=== PATIENT | female | born 1965 | race Caucasian/White ===

== ENCOUNTER 2019-12-30 10:04 | Outpatient (CLI) | payer OTHER, SELFPAY ==
--- NOTE | ~2019-12-30 | DEXA_ITS ---
Bone Density Report Name: Vidhya Eastman Age: 54 Sex: Female Ethnicity: White Date of : 1965 Indication: postmenopausal; Referring Provider: JOVAN STARR Study: Bone densitometry was performed. Exam Date: December 30, 2019 Accession number: [id number] Bone Density: Region BMD T-score Z-score Classification AP Spine (L1-L4) 0.772 -2.5 -1.4 Osteoporosis Femoral Neck (Left) 0.464 -3.5 -2.4 Osteoporosis Total Hip (Left) 0.706 -1.9 -1.2 Osteopenia Total Hip Bilateral Avg 0.721 -1.8 -1.1 Osteopenia Femoral Neck (Right) 0.539 -2.8 -1.7 Osteoporosis Total Hip (Right) 0.736 -1.7 -1.0 Osteopenia World Health Organization criteria for BMD impression classify patients as: Normal (T-score at or above -1.0), Osteopenia (T-score between -1.0 and -2.5), or Osteoporosis (T-score at or below -2.5). 10-year Fracture Risk: FRAX not reported because: Some T-score for Spine Total or Hip Total or Femoral Neck at or below -2.5 Clinical Information Provided by Patient: Has used the following medications: Vitamin D, Calcium Patient maximum height was 65 Menopause Age: 53 Drinks caffeinated beverages Onset of menses at age 11 Number of children 1 Impression: The patient has osteoporosis, based on the Left Femoral Neck T-score. Discussion: HIGH RISK OF FRACTURE. BONE DENSITY IS UNDESIRABLY LOW AT ONE OR MORE SKELETAL SITES, CONSISTENT WITH OSTEOPOROSIS. ALSO, BONE DENSITY IS LOWER THAN EXPECTED FOR AGE AND SEX AT ONE OR MORE SKELETAL SITES; RECOMMEND A DILIGENT SEARCH FOR SECONDARY CAUSES OF BONE LOSS. This patient's lowest T-score meets the World Health Organization's (WHO) criteria for osteoporosis at one or more sites (T-score -2.5 or below). In untreated patients, the risk of osteoporotic fracture increases approximately two-fold for each 1.0 SD decrease in T-score. Low bone density is not the only risk factor for fracture; also consider factors such as patient's age, frailty or poor health, risk of falling, risk of injury, previous osteoporotic fracture, family history of osteoporosis, cigarette smoking, low body weight, etc. Not everyone with low bone mineral density has osteoporosis; osteomalacia and other metabolic bone disorders should also be considered. Patients who have osteoporosis should be evaluated for specific diseases and conditions (secondary causes) that may cause or contribute to bone loss. The [place] [employer]ocrinologists (AACE) and National Osteoporosis Foundation (NOF) recommend pharmacologic intervention for all postmenopausal women whose T-score is in this range. Also, this patient's bone mineral density is below the range considered normal for healthy age-, sex-, and race-matched controls at least one site (Z-score -2.0 or below). This warrants careful evaluation for diseases and conditions t
[2019-12-30 12:57] LABS: Vitamin D 25 Hydroxy 40.1 ng/mL
== END 2019-12-30 10:05 | disposition home or self-care (01) ==
PROVIDERS: PCP Family Medicine Sports Medicine; Visit Provider Obstetrics & Gynecology
DX: Z78.0 Asymptomatic menopausal state (principal); M81.0 Age-related osteoporosis without current pathological fracture; M85.89 Other specified disorders of bone density and structure, multiple sites
CPT/HCPCS: 36415; 77080; 82306

== ENCOUNTER 2020-01-28 00:42 | Outpatient (CLI) | payer OTHER, SELFPAY ==
[2020-01-28 18:07] LABS: SARS-CoV-2 RNA PCR Negative
== END 2020-01-28 00:43 | disposition home or self-care (01) ==
LOC: ANHCOVIDDT 00:42
PROVIDERS: Anesthesiology; PCP Family Medicine Sports Medicine; Visit Provider Obstetrics & Gynecology
DX: Z01.818 Encounter for other preprocedural examination (principal); Z11.59 Encounter for screening for other viral diseases
CPT/HCPCS: 87635; C9803; U0003

== ENCOUNTER 2020-01-30 02:14 | Day surgery (SDC) | payer OTHER, SELFPAY ==
[2020-01-19 15:11] VITALS: BMI 21.6
[2020-01-30] VITALS (8 sets, daily range): BP systolic 90–113; BP diastolic 55–68; PULSE 69–86; RESP 10–18; TEMP 36.4; O2SAT 94–100
--- NOTE | 2020-01-30 08:20 | PM.HPGS ---
History of Present Illness History of Present Illness Consent: Risks, benefits, and alternatives have been discussed and questions answered. Patient agrees to proceed with procedure. Chief complaint: Genuine Stress Incontinence Narrative: Vidhya Eastman is a 54 year old female A2 presented to the office with complaints of leakage of urine Patient reports leakage with cough laugh sneeze and exercise.Patient has tried kegel/bladder exercises and not helping. Review of Systems Review of Systems: All systems reviewed & are unremarkable except as noted in HPI and below PMFSH Past Medical History Medical History (Updated 01/30/20 @ 08:33 by Juan Francisco Swift MD) Constipation GSI (genuine stress incontinence), female Social History Social History Smoking status: Never smoker Alcohol intake: unknown Drinks per week: 0 Substance use: never Substance use type: does not use Living arrangements: with family Gender identity (if verbalized by the patient): Female Spiritual care concerns: No Meds Home Medications and Allergies Home Medications Medication Instructions Recorded Confirmed Type gbfbwohomcfp-tab-zjzz-FA-vit K 1 tablet PO DAILY 01/19/20 01/19/20 History [Adults Multivitamin] Allergies Allergy/AdvReac Type Severity Reaction Status Date / Time No Known Allergies Allergy Unverified 01/19/20 15:29 Exam Const: General: no acute distress Cardio: Rate: regular rate Rhythm: regular rhythm Assessment and Plan Assessment and plan (1) GSI (genuine stress incontinence), female: Code(s): N39.3 - Stress incontinence (female) (male) Status: Acute Assessment and Plan: Patient scheduled for transobturator taping with cystoscopy. Risk and benefits reviewed in detain with patient including bleeding infection, trauma, mesh erosion, retention and chronic pain.
--- NOTE | 2020-01-30 10:41 | P.PNAN_ITS ---
Anes - Initial Pre Proc Eval Procedure: Operation Date: 01/30/20 12:00 Proposed Procedures p Trans Obturator Taping - Juan Francisco Swift MD s Cystoscopy - Juan Francisco Swift MD Date/Time: 01/30/20 10:41 Surgeon: Juan Francisco Swift MD Pre Op Diagnosis: Genuine Stress Incontinence Patient Data Age: 54 Gender: F Height: 5 ft 5 in Weight: 59 kg Allergies Allergy/AdvReac Type Severity Reaction Status Date / Time No Known Allergies Allergy Unverified 01/19/20 15:29 Home Medications Medication Instructions Recorded Confirmed Type ydfrvqjzktsn-hob-mgbo-FA-vit K 1 tablet PO DAILY 01/19/20 01/19/20 History [Adults Multivitamin] Patient hx anesthesia problems: none Family hx anesthesia problems: none [facility] Past Medical History Medical History (Updated 01/30/20 @ 08:33 by Juan Francisco Swift MD) Constipation GSI (genuine stress incontinence), female Social History Social History Smoking status: Never smoker Alcohol intake: unknown Drinks per week: 0 Substance use: never Substance use type: does not use Living arrangements: with family Gender identity (if verbalized by the patient): Female Spiritual care concerns: No Anes - Eval Final PreProcedure Day of Procedure 01/30/20 10:41 Patient weight: normal Heart: regular rate and rhythm Lungs: clear to auscultation Airway: Mallampati scale class II Neurological: alert and oriented Last oral intake: >/= 8 hours ASA classification: II Emergent: no Anesthetic plan: proceed Anesthesia type and monitoring: general LMA and standard monitoring Informed Consent: The patient's anesthetic plan and its attendant risks and benefits were discussed with the patient/family/POA. Questions were solicited and answers provided to the satisfaction of the patient/family/POA.
[2020-01-30] MEDS: LACTATED RINGERS 1,000 ML 30 ML IV CONT ×2 (10:45→12:01)
[2020-01-30] MEDS: ceFAZolin 2 GM/D5W 50 ML 2 GM/50 ML BAG IVPB (11:50)
[2020-01-30] MEDS: LIDO 1%/EPINEPHRINE 1:100,000 20 ML VIAL INFILTRATE (12:01)
--- NOTE | 2020-01-31 16:59 | OP_ITS ---
DATE OF PROCEDURE: 01/30/2020 PREOPERATIVE DIAGNOSIS: Genuine stress incontinence. POSTOPERATIVE DIAGNOSIS: Genuine stress incontinence. PROCEDURE PERFORMED: Transobturator taping with cystoscopy. ESTIMATED BLOOD LOSS: 20 mL. COMPLICATIONS: None. DESCRIPTION OF PROCEDURE: Patient was taken to the operating room under general anesthesia and placed in a dorsal lithotomy position. The patient was prepped and draped in normal sterile fashion. The bladder was emptied with a 16-[place] catheter. Two Allis clamps were placed along the anterior vaginal wall beginning 1 cm below the urethra and approximately 2 cm apart vertically. A 2 cm incision was made between the Allis clamps and the anterior vaginal mucosa. Periurethral tissue was dissected with Metzenbaum scissors and blunt dissection to the level of the pubic bone on either side. The midline was marked just above the pelvis and 2 markings were made in the obturator canal using landmarks. The needle was then placed through the transobturator taping passing underneath the pubic bone through the obturator canal exiting alongside the urethra on the right side. The same procedure was performed on the left side. The catheter was removed. The cystoscope was performed, which showed an intact bladder with bilateral ureteral jets and no needle or metal showing on cystoscopy and clear urine. The cystoscope was removed. The mesh was attached to the needle and pulled through adjusting the vaginal mesh with a Metzenbaum scissors for adequate spacing. The vaginal mucosa was then closed with a running locked suture of 2-0 Vicryl for complete hemostasis. The mesh ends were cut applied to the area. At the end of the procedure, all sponge, needle, and instrument counts were correct x2. There were no complications. The patient tolerated the procedure well, was taken to recovery room in stable condition. D I MT: Jorge
== END 2020-01-30 14:40 | disposition home or self-care (01) ==
PROVIDERS: PCP Family Medicine Sports Medicine; Visit Provider Obstetrics & Gynecology
PROC: (CPT 57288; principal; 2020-01-30 12:00)
PROC: 0TJB8ZZ Inspection of Bladder, Via Natural or Artificial Opening Endoscopic (ICD-10-PCS; CPT 52000; 2020-01-30 12:00)
DX: N39.3 Stress incontinence (female) (male) (principal)
CPT/HCPCS: 57288; A9270; C1771; J0690; J1100; J2250; J2405; J2704; J3010; J7030; J7120

== ENCOUNTER 2020-08-09 03:47 | Outpatient (CLI) | payer OTHER, SELFPAY ==
[2020-08-09 16:31] LABS: SARS-CoV-2 RNA PCR Negative
== END 2020-08-09 03:48 | disposition home or self-care (01) ==
LOC: ANHCOVIDDT 03:47
PROVIDERS: PCP Family Medicine Sports Medicine; Visit Provider Internal Medicine Gastroenterology
DX: Z01.812 Encounter for preprocedural laboratory examination (principal); Z20.822 Contact with and (suspected) exposure to COVID-19
CPT/HCPCS: C9803; U0003; U0005

== ENCOUNTER 2020-08-12 01:19 | Day surgery (SDC) | payer OTHER, SELFPAY ==
[2020-07-30 09:39] VITALS: BMI 22.0
[2020-08-12 10:41] VITALS: BP 90/56; PULSE 88; RESP 18; TEMP 36.6; O2SAT 100
[2020-08-12] MEDS: LACTATED RINGERS 1,000 ML 150 ML IV CONT (10:50)
--- NOTE | 2020-08-12 11:11 | WPDANESEPPF ---
Anes - Initial Pre Proc Eval Procedure: Operation Date: 08/12/20 13:00 Proposed Procedures p Screening Colonoscopy - Gio Ramirez MD Date/Time: 08/12/20 11:11 Surgeon: Gio Ramirez MD Pre Op Diagnosis: neoplasm screening Patient Data Age: 54 Gender: F Height: 5 ft 5 in Weight: 59.9 kg Last Vital Signs Temp 97.9 F 08/12/20 10:41 Pulse 88 08/12/20 10:41 Resp 18 08/12/20 10:41 BP 90/56 L 08/12/20 10:41 Pulse Ox 100 08/12/20 10:41 Allergies Allergy/AdvReac Type Severity Reaction Status Date / Time No Known Allergies Allergy Unverified 01/30/20 10:58 Home Medications Medication Instructions Recorded Confirmed Type xqgsietpljgt-kid-ieku-FA-vit K 1 tablet PO DAILY 01/19/20 07/30/20 History [Adults Multivitamin] calcium carbonate-vitamin D2 1 tablet PO DAILY 07/30/20 07/30/20 History [Calcium + Vitamin D] flu vac [id number] 36mos up(PF) 0.5 ml IM [id number] 07/30/20 07/30/20 History [Afluria Qd 2020-21(3yr up)(PF)] spironolactone 100 mg PO DAILY 07/30/20 07/30/20 History Patient hx anesthesia problems: none Family hx anesthesia problems: none PMFSH Past Medical History Medical History (Updated 01/30/20 @ 08:33 by Juan Francisco Swift MD) Constipation GSI (genuine stress incontinence), female Social History Social History Smoking status: Never smoker Alcohol intake: never Drinks per week: 0 Substance use: never Substance use type: does not use Living arrangements: with family Gender identity (if verbalized by the patient): Female Spiritual care concerns: No Anes - Eval Final PreProcedure Day of Procedure 08/12/20 11:11 Patient weight: overweight Heart: regular rate and rhythm Lungs: clear to auscultation Airway: Mallampati scale Last oral intake: >/= 8 hours ASA classification: II Emergent: no Anesthetic plan: proceed Anesthesia type and monitoring: general and standard monitoring Informed Consent: The patient's anesthetic plan and its attendant risks and benefits were discussed with the patient/family/POA. Questions were solicited and answers provided to the satisfaction of the patient/family/POA.
--- NOTE | 2020-08-12 11:39 | PM.HPGS ---
History of Present Illness History of Present Illness Consent: Risks, benefits, and alternatives have been discussed and questions answered. Patient agrees to proceed with procedure. Chief complaint: neoplasm screening Narrative: Vidhya Eastman is a 54 year old female with colon polyps almost 3 years ago. Review of Systems Constitutional: Constitutional: Denies headache(s) and Denies weakness Eyes: Eyes: Denies blurry vision ENT: Reports Normal hearing present, Denies headache(s) and Denies neck pain Cardiovascular: Cardiovascular: Denies chest pain and Denies dyspnea Respiratory: Respiratory: Denies dyspnea Gastrointestinal: Gastrointestinal: Reports no additional gastrointestinal complaints Genitourinary: Genitourinary: Denies dysuria Musculoskeletal: Musculoskeletal: Denies neck pain Integumentary/Breasts: Skin/Breast: Denies dry skin Neurologic: Reports Normal hearing present, Denies headache(s) and Denies weakness Psychiatric: Psychiatric: Denies anxiety Endocrine: Endocrine: Denies change in body appearance Hematologic/Lymphatic: Hematologic/Lymphatic: Denies easy bleeding Allergic/Immunologic: Allergic/Immunologic: Denies urticaria PMFSH Past Medical History Medical History (Updated 08/12/20 @ 11:40 by Gio Ramirez MD) Adenomatous colon polyp Constipation GSI (genuine stress incontinence), female Social History Social History Smoking status: Never smoker Alcohol intake: never Drinks per week: 0 Substance use: never Substance use type: does not use Living arrangements: with family Gender identity (if verbalized by the patient): Female Spiritual care concerns: No Meds Home Medications and Allergies Home Medications Medication Instructions Recorded Confirmed Type tsvrvvobnqeq-irt-dlza-FA-vit K 1 tablet PO DAILY 01/19/20 07/30/20 History [Adults Multivitamin] calcium carbonate-vitamin D2 1 tablet PO DAILY 07/30/20 07/30/20 History [Calcium + Vitamin D] flu vac [id number] 36mos up(PF) 0.5 ml IM [id number] 07/30/20 07/30/20 History [Afluria Qd 2019-(3yr up)(PF)] spironolactone 100 mg PO DAILY 07/30/20 07/30/20 History Allergies Allergy/AdvReac Type Severity Reaction Status Date / Time No Known Allergies Allergy Unverified 01/30/20 10:58 Vital Signs Vital Signs - 24 hr 08/12/20 10:41 Temperature 97.9 F Pulse Rate 88 Respiratory Rate 18 Blood Pressure 90/56 L Pulse Oximetry 100 Exam Const: General: comfortable and no acute distress HENMT: General nose exam: Normal nares present Eyes: General: appearance normal, both eyes and all related structures Neck: Neck: no JVD Resp: Auscultation: clear to auscultation bilaterally Cardio: Rate: regular rate Rhythm: regular rhythm GI: Inspection: non-distended GI Palp: Yes Soft to palpation Skin: General skin exam: normal color Neuro: General: gait normal Speech: normal speech Extrem: General: normal to inspection Psych: Mental Status: mental status grossly normal Assessment and Plan Assessment and plan (1) Adenomatous colon polyp: Code(s): D12.6 - Benign neoplasm of colon, unspecified Status: Acute Assessment and Plan: will proceed with colonoscopy
[2020-08-12 12:02] VITALS: BP 81/50; PULSE 74; RESP 18; O2SAT 99
[2020-08-12 12:12] VITALS: BP 97/65; PULSE 61; RESP 13; O2SAT 100
[2020-08-12 12:22] VITALS: BP 108/73; PULSE 65; RESP 16; O2SAT 100
== END 2020-08-12 12:42 | disposition home or self-care (01) ==
PROVIDERS: PCP Family Medicine Sports Medicine; Visit Provider Internal Medicine Gastroenterology
PROC: 0DJD8ZZ Inspection of Lower Intestinal Tract, Via Natural or Artificial Opening Endoscopic (ICD-10-PCS; CPT 45378; principal; 2020-08-12 13:00)
DX: Z12.11 Encounter for screening for malignant neoplasm of colon (principal); K64.8 Other hemorrhoids
CPT/HCPCS: 45378; C9803; J2001; J2704; J7120; U0003; U0005

== ENCOUNTER 2022-05-15 14:39 | Outpatient (CLI) | payer OTHER, SELFPAY ==
--- NOTE | ~2022-05-15 | DEXA_ITS ---
Bone Density Report Name: HIGINIO GALVEZ Age: 56 Sex: Female Ethnicity: White Date of : 1965 Indication: postmenopausal; screening for osteoporosis; height loss; Referring Provider: FRANCESCO, MIRTHA Study: Bone densitometry was performed. Exam Date: May 15, 2022 Accession number: [id number] Bone Density: Region BMD T-score Z-score Classification AP Spine(L1-L4) 0.882 -1.5 -0.3 Osteopenia Femoral Neck (Left) 0.617 -2.1 -0.9 Osteopenia Total Hip (Left) 0.755 -1.5 -0.7 Osteopenia Femoral Neck (Right) 0.576 -2.5 -1.3 Osteoporosis Total Hip (Right) 0.774 -1.4 -0.6 Osteopenia Total Hip Mean 0.765 -1.5 -0.7 Osteopenia World Health Organization criteria for BMD impression classify patients as: Normal (T-score at or above -1.0), Osteopenia (T-score between -1.0 and -2.5), or Osteoporosis (T-score at or below -2.5). 10-year Fracture Risk: FRAX not reported because: Some T-score for Spine Total or Hip Total or Femoral Neck at or below -2.5 Treated for osteoporosis Clinical Information Provided by Patient: Is being treated for osteoporosis Has used the following medications: Prolia (i.e. denosumab), Vitamin D, Calcium Patient maximum height was 65 Menopause Age: 53 Drinks caffeinated beverages Onset of menses at age 11 Number of children 1 Impression: The patient has osteoporosis, based on the Right Femoral Neck T-score. Discussion: It is important to ask patients whether they are taking their medications and to encourage continued and appropriate compliance with their osteoporosis therapies to reduce fracture risk. It is also important to review their risk factors and encourage appropriate calcium and vitamin D intakes, exercise, fall prevention and other lifestyle measures. Follow-Up: Consider a repeat BMD and Vertebral Fracture Assessment (VFA) exam in 2 years or sooner if medically necessary, to reassess this patient's status. Reported by: [facility] on 05/15/2022 3:06:00 PM. Reviewed, dictated and finalized at location AAiram RAY
== END 2022-05-15 14:40 | disposition home or self-care (01) ==
LOC: ANHIMG 14:47
PROVIDERS: PCP Family Medicine Sports Medicine; Visit Provider Nurse Practitioner
DX: Z78.0 Asymptomatic menopausal state (principal); M85.89 Other specified disorders of bone density and structure, multiple sites; M81.0 Age-related osteoporosis without current pathological fracture
CPT/HCPCS: 77080

== ENCOUNTER 2024-08-15 08:26 | Outpatient (CLI) | payer OTHER, SELFPAY ==
--- NOTE | ~2024-08-15 | DEXA_ITS ---
Bone Density Report Name: HIGINIO GALVEZ Age: 58 Sex: Female Ethnicity: White Date of : 1965 Indication: osteopenia; monitoring treatment; height loss; Referring Provider: FRANCESCO, MIRTHA Study: Bone densitometry was performed. Exam Date: August 15, 2024 Accession number: [id number] Bone Density: Region BMD T-score Z-score Classification AP Spine(L1, L2, L3) 0.865 -1.4 0.0 Osteopenia Femoral Neck (Left) 0.533 -2.8 -1.6 Osteoporosis Total Hip (Left) 0.797 -1.2 -0.3 Osteopenia Femoral Neck (Right) 0.605 -2.2 -0.9 Osteopenia Total Hip (Right) 0.829 -0.9 0.0 Normal Total Hip Mean 0.813 -1.1 -0.2 Osteopenia World Health Organization criteria for BMD impression classify patients as: Normal (T-score at or above -1.0), Osteopenia (T-score between -1.0 and -2.5), or Osteoporosis (T-score at or below -2.5). 10-year Fracture Risk: FRAX not reported because: Some T-score for Spine Total or Hip Total or Femoral Neck at or below -2.5 Treated for osteoporosis Previous Exams: Region Exam Age BMD T-score BMD Change BMD Change Date g/cm2 vs Baseline vs Previous AP Spine (L1-L3) 08/15/2024 58 0.865 -1.4 0.115 (15.3%)# 0.007 (0.9%)# 05/15/2022 56 0.858 -1.5 0.108 (14.3%)* 0.108 (14.3%)* 12/30/2019 54 0.750 -2.4 Total Hip(Left) 08/15/2024 58 0.797 -1.2 0.091 (12.8%)# 0.042 (5.5%)# 05/15/2022 56 0.755 -1.5 0.049 (6.9%)* 0.049 (6.9%)* 12/30/2019 54 0.706 -1.9 Total Hip(Right) 08/15/2024 58 0.829 -0.9 0.094 (12.7%)# 0.055 (7.1%)# 05/15/2022 56 0.774 -1.4 0.039 (5.2%)* 0.039 (5.2%)* 12/30/2019 54 0.736 -1.7 *Denotes significance at 95% confidence level, LSC for AP Spine = 0.022 g/cm2, LSC for Total Hip = 0.027 g/cm2 # Denotes dissimilar scan types or analysis methods Clinical Information Provided by Patient: Is being treated for osteoporosis Has used the following medications: Prolia (i.e. denosumab), Vitamin D, Calcium Patient maximum height was 65 Menopause Age: 53 Drinks caffeinated beverages Onset of menses at age 11 Number of children 1 Impression: The patient has osteoporosis, based on the Left Femoral Neck T-score. No significant bone loss was observed. Discussion: PATIENT UNDER TREATMENT WITH NO SIGNIFICANT BMD LOSS SINCE LAST EXAM. In an untreated patient, BMD typically declines with age. A lack of decline or gain is usually a sign that treatment is efficacious and fracture risk is reduced. It is important to ask patients whether they are taking their medications and to encourage continued and appropriate compliance with their osteoporosis therapies to reduce fracture risk. It is also important to review their risk factors and encourage appropriate calcium and vitamin D intakes, exercise, fall prevention and other lifestyle measures. Follow-Up: Consider a repeat BMD and Vertebral Fracture Assessment (VFA) exam in 2 years or sooner if medically necessary, to reassess this patient's status. Reported by: JUNIOR on 08/15/2024 8:57:00 AM. Reviewed, dictated and finalized at location AAiram RAY
== END 2024-08-15 08:27 | disposition home or self-care (01) ==
LOC: ANHIMG 08:30
PROVIDERS: PCP Family Medicine; Visit Provider Nurse Practitioner
DX: M81.0 Age-related osteoporosis without current pathological fracture (principal); M85.89 Other specified disorders of bone density and structure, multiple sites; Z78.0 Asymptomatic menopausal state
CPT/HCPCS: 77080